=== PATIENT | female | born 2000 | race Caucasian/White ===

== ENCOUNTER 2021-08-13 03:20 | Emergency (ER) | payer MEDICAID ==
[2021-08-13 04:32] LABS: CORONAVIRUS COVID-19 NAA NEGATIVE (NEGATIVE); RESPIRATORY SYNCYTIAL VIR NAA NEGATIVE (NEGATIVE)
[2021-08-13 04:49] VITALS: BP 155/80; PULSE 118
--- NOTE | 2021-08-13 04:53 | EDM.PDOC ---
ED HPI GENERAL MEDICAL PROBLEM - General Chief Complaint: Respiratory Problem Stated Complaint: chills, shortness of breath Time Seen by Provider: 08/13/21 03:40 Source of Information: Reports: Patient History Limitations: Reports: No Limitations - History of Present Illness INITIAL COMMENTS - FREE TEXT/NARRATIVE: Patient presents tonight with sinus congestion and sore throat cough and shortness of breath when trying to breathe through her nose. She states all has been going on for about 3 to 4 days and she states tonight she could not go to sleep secondary to the sore throat and the cough. She also states she has a dull right-sided mostly forehead headache. She says this fits her typical migraine headache pattern that she rates about a 7 out of 10 today. She says t his is not the worst headache of her life there has not been any change from her typical migraine pattern. She has had CTs before with negative work-ups. She says she has been taking several cznz-[id number]-[id number] medications over the last several days and not have any relief of the symptoms. She says she took multiple combinations of them all day today with the last ones approximately 8:00 tonight. She says she is mostly on a prophylactic migraine medication but stopped taking it secondary to reading the side effects from it although she was not having any. She is also supposed to be on control secondary to her history of iron deficiency anemia that is induced by her periods but also quit taking it secondary to the side effects about 2 months ago. Her last menstrual period finished up yesterday which she states she does have a typical heavy flow. She denies any chest pain or shortness of breath with activity or ESPITIA states that shortness of breath is only when trying to breathe through her nose when the cough occurs. She denies any inactivity she does not smoke. She denies any swelling or redness or tenderness or pain to the calf areas. Mother does have a history of DVT x1. Years ago She has no other complaints at this time Duration: Day(s): Location: Reports: Head Quality: Reports: Pressure Severity: Mild Improves with: Reports: None Worsens with: Reports: None Associated Symptoms: Reports: Cough, Headaches, Shortness of Breath. Denies: Fever/Chills, Nausea/Vomiting, Syncope Treatments [employer]OP[employer]: Reports: Other Medication(s) Other Treatments [employer]: Dayquil, Nyquil, Kaitlyn Zuniga Headache Pain Score (Numeric/FACES): 6 - Related Data Allergies Allergy/AdvReac Type Severity Reaction Status Date / Time cephalexin Allergy Other Verified 11/18/15 16:59 Penicillins Allergy Other Verified 11/18/15 16:59 Home Meds: Home Meds Azithromycin [Z-Brody] 250 mg PO ASDIRECTED #1 dosepk 11/18/15 [Rx] Doxycycline [Vibramycin] 100 mg PO BID 11/18/15 [History] Past Medical History - Past Health History Medical/Surgical History: Denies Medical/Surgical History HEENT History: Reports: Sinusitis Neurological History: Reports: Headaches, Chronic Dermatologic History: Reports: Other (See Below) Other Dermatologic History: acne - Past Surgical History HEENT Surgical History: Reports: Adenoidectomy, Tonsillectomy Social & Family History - Tobacco Use Tobacco Use Status *Q: Current Status Unknown Second Hand Smoke Exposure: No - Recreational Drug Use Recreational Drug Use: No ED ROS GENERAL - Review of Systems Review Of Systems: See Below Constitutional: Reports: No Symptoms HEENT: Reports: No Symptoms, Rhinitis, Sinus Problem, Throat Pain, Other (Sinus pressure bilateral ear pain pressure sore throat increases with laying down along with a cough typically gets better with up and moving and walking around). Denies: Hearing Loss Respiratory: Reports: Shortness of Breath, Cough. Denies: Pleuritic Chest Pain, Sputum Cardiovascular: Reports: Other (She says she has had intermittent episodes of high blood pressure in the clinic but is never really been addressed she is also had chronic tachycardia before and usually runs in the one teens ). Denies: Chest Pain, Blood Pressure Problem, Claudication, Dyspnea on Exertion, Lightheadedness, Orthopnea, Palpitations Endocrine: Reports: No Symptoms GI/Abdominal: Reports: No Symptoms : Reports: No Symptoms Musculoskeletal: Reports: No Symptoms Neurological: Reports: Headache Psychiatric: Reports: No Symptoms Hematologic/Lymphatic: Reports: No Symptoms Immunologic: Reports: No Symptoms ED EXAM, GENERAL - Physical Exam Exam: See Below Exam Limited By: No Limitations General Appearance: Alert, WD/WN, No Apparent Distress Eye Exam: Bilateral Eye: EOMI, Normal Inspection, PERRL Ears: Normal External Exam, Normal Canal, Hearing Grossly Normal, Other (Bilateral cerumen impaction no tenderness palpation over the tragus or pinnae). No: Normal TMs Nose: Normal Inspection, Normal Mucosa, No Blood, Other (No tenderness palpation over the sinus cavities forehead bilateral temporal arteries) Throat/Mouth: Normal Inspection, Normal Lips, Normal Teeth, Normal Gums, Normal Oropharynx, Normal Voice, No Airway Compromise, Other (Positive postnasal drainage) Head: Atraumatic, Normocephalic Neck: Normal Inspection, Supple, Non-Tender, Full Range of Motion Respiratory/Chest: No Respiratory Distress, Lungs Clear, Normal Breath Sounds, No Accessory Muscle Use, Chest Non-Tender Cardiovascular: Normal Peripheral Pulses, Regular Rate, Rhythm, No Edema, No Gallop, No JVD, No Murmur, No Rub, Tachycardia GI/Abdominal: Normal Bowel Sounds, Soft, Non-Tender, No Organomegaly, No Distention. No: Guarding, Rigid, Rebound, Tender Extremities: Normal Inspection, Normal Range of Motion, Non-Tender, No Pedal Edema, Normal Capillary Refill, Other (No tenderness palpation of bilateral calf there is no noted edema erythema) Neurological: Alert, Oriented, CN II-XII Intact, Normal Cognition, Normal Gait, No Motor/Sensory Deficits Psychiatric: Normal Affect, Normal Mood Skin Exam: Warm, Dry, Intact, Normal Color, No Rash Lymphatic: No Adenopathy Course - Vital Signs Text/Narrative:: Rapid Covid flu was checked negative Wells criteria of 1.5 Heart rate was rechecked she is down from 142- 112 Blood pressure still elevated I believe this is chronic , the patient has no signs symptoms of endorgan damage and she has no complaints at this time I instructed the patient she needs to follow-up with a primary care provider to have this addressed Patient was instructed on the bilateral cerumen impaction how to remove with [id number] stool softener warm water flushes and to follow-up with her primary care provider She is also instructed to use warm salt water gargles normal saline nasal spray discontinued use of multipolypharmacy medications and use [id number]-[id number] guaifenesin as directed 1 tablet every 6-8 hours for the next 3 to 4 days Patient is okay with disposition and course of treatment Last Recorded V/S: Last Vital Signs Temp 37.2 C 08/13/21 03:20 Pulse 118 H 08/13/21 04:48 Resp 12 08/13/21 03:20 BP 155/80 H 08/13/21 04:48 Pulse Ox 98 08/13/21 03:20 - Orders/Labs/Meds Labs: Laboratory Tests 08/13/21 Range/Units 03:43 Influenza Type A RNA Negative (NEGATIVE) RSV RNA (INAAT) Negative (NEGATIVE) Influenza Type B RNA Negative (NEGATIVE) SARS-CoV-2 RNA (NITO) Negative (NEGATIVE) Departure - Departure Time of Disposition: 05:00 Disposition: Home, Self-Care 01 Condition: Good Clinical Impression: Migraine headache, Tachycardia, Hypertension, Sinus congestion, Acute cough - Discharge Information *PRESCRIPTION DRUG MONITORING PROGRAM REVIEWED*: No *COPY OF PRESCRIPTION DRUG MONITORING REPORT IN PATIENT KIKA: No Instructions: Chronic Migraine Headache, [id number] Referrals: PCP,None [Primary Care Provider] - Forms: ED Department Discharge Additional Instructions: Follow-up with your primary care provider in the next 24 hours for the blood pressure issues along with the current migraine issues along with the cough and shortness of breath I recommend using normal saline nasal spray to flush out the nose and sinus cavities spray in each nostril at least 4-5 times a day also recommend gargling with warm salt water 1 teaspoon mixed with 4 ounces warm salt water gargle and spit every 3-4 hours as tolerated Fill the prescription I gave you Flonase 2 sprays each nostril twice a day Take zfan-gtt-jtptyeq Mucinex 1 tablet every 6-8 hours for the next 24 to 48 hours Make sure you are drinking plenty of water I recommend at least 8 glasses a day Return here to emergency room if anything changes or gets worse - Problem List & Annotations (1) Acute cough SNOMED Code(s): 81581386, 33604001 Code(s): R05.1 - ACUTE COUGH Status: Acute (2) Hypertension SNOMED Code(s): 38637780 Code(s): I10 - ESSENTIAL (PRIMARY) HYPERTENSION Status: Acute (3) Tachycardia SNOMED Code(s): 3683260 Code(s): R00.0 - TACHYCARDIA, UNSPECIFIED Status: Acute
== END 2021-08-13 05:30 | disposition home or self-care (01) ==
LOC: VM.ED 03:20
DX: G43.909 Migraine, unspecified, not intractable, without status migrainosus (principal); I10 Essential (primary) hypertension; R00.0 Tachycardia, unspecified; R09.81 Nasal congestion; R05.9 Cough, unspecified; Z88.1 Allergy status to other antibiotic agents; Z88.0 Allergy status to penicillin; Z20.822 Contact with and (suspected) exposure to COVID-19
CPT/HCPCS: 0241U; 99283; 99284

== ENCOUNTER 2022-06-16 16:45 | Emergency (ER) | payer MEDICAID ==
[2022-06-16] MEDS ORDERED: Ketorolac 30 MG/ML SDV IM ONE (17:13)
[2022-06-16] MEDS ORDERED: Orphenadrine 60 MG/2 ML Inj IM ONE (17:13)
[2022-06-16] MEDS ORDERED: Acetaminophen/HYDROcodone 325-10 MG Tab PO ONE (17:43)
[2022-06-16] MEDS ORDERED: Morphine 2 MG/ML SYRINGE IM ONE ×2 (18:16→19:01)
[2022-06-16] MEDS ORDERED: Take Home: Acetaminophen/oxyCODONE 325-5 MG, 5 Tab Pack PO ONE (18:16)
[2022-06-16] MEDS ORDERED: Take Home: Ondansetron 4 MG Tab.DIS, 5 Tab Pack PO ONE (18:17)
[2022-06-16] MEDS ORDERED: Morphine 15 MG Tab.ER PO SCH (21:00)
== END 2022-06-16 19:28 | disposition home or self-care (01) ==
LOC: VM.ED 16:45
DX: M62.830 Muscle spasm of back (principal); Z88.1 Allergy status to other antibiotic agents; Z88.0 Allergy status to penicillin
CPT/HCPCS: 96372; 99283; A9270; J1885; J2270; J2360; Q0162

== ENCOUNTER 2022-12-08 16:32 | Emergency (ER) | payer MEDICAID ==
[2022-12-08 17:03] VITALS: BP 138/70; PULSE 75
== END 2022-12-08 17:01 | disposition home or self-care (01) ==
LOC: VM.ED 16:32
DX: S99.921A Unspecified injury of right foot, initial encounter (principal); Z88.0 Allergy status to penicillin; Z88.1 Allergy status to other antibiotic agents
CPT/HCPCS: 99283

== ENCOUNTER 2023-03-04 00:20 | Emergency (ER) | payer MEDICAID ==
[2023-03-04 00:39] VITALS: BP 147/81; PULSE 103
[2023-03-04] MEDS: Acetaminophen/HYDROcodone 325-10 MG Tab PO ONE (00:46)
[2023-03-04] MEDS: Ketorolac 30 MG/ML SDV IM ONE (00:51)
[2023-03-04] MEDS: Orphenadrine 60 MG/2 ML Inj IM ONE (00:51)
[2023-03-04] MEDS: Take Home: Cyclobenzaprine 10 MG Tab, 4 Tab Pack PO ONE (00:52)
[2023-03-04] MEDS: Take Home: Acetaminophen/HYDROcodone 325-10 MG, 5 Tab Pack PO ONE (00:52)
== END 2023-03-04 01:10 | disposition home or self-care (01) ==
LOC: VM.ED 00:20
DX: M54.50 Low back pain, unspecified (principal); Z88.0 Allergy status to penicillin; Z88.1 Allergy status to other antibiotic agents
CPT/HCPCS: 96372; 99283; A9270-GY; J1885; J2360